=== PATIENT | male | born 1955 | race Caucasian/White ===

== ENCOUNTER 2017-11-24 18:13 | Emergency (ER) | payer BC ==
[2017-11-24 18:48] VITALS: BP 108/84
--- NOTE | 2017-11-24 19:25 | EDM.PDOC ---
ED HPI GENERAL MEDICAL PROBLEM - General Chief Complaint: ENT Problem Stated Complaint: DENTAL COMPLAINT Time Seen by Provider: 11/24/17 18:53 Source of Information: Reports: Patient History Limitations: Reports: No Limitations - History of Present Illness INITIAL COMMENTS - FREE TEXT/NARRATIVE: 62-year-old male presenting with a chief complaint of dental infection. Patient was seen at the beginning of October approximately October [address] Nabor Marcelo here in the emergency department for left lower molar infection. At that time he was placed on amoxicillin and given Vicodin and advised to follow- up with a dentist. He saw his dentist to wanted. Of cooling off before performing a root canal. The patient is currently scheduled for root canal on Saturday. However the past days has increased swelling pain of the left lower jaw around the area of the fractured tooth. He's had no difficulty breathing no difficulty managing his own secretions or swallowing. No neck pain either. He called his dentist who directed him to come to the emergency department for antibiotics to take until Saturday. Left Lower Tooth/Teeth Pain Score (Numeric/FACES): 5 - Related Data Allergies Allergy/AdvReac Type Severity Reaction Status Date / Time No Known Allergies Allergy Verified 10/27/17 23:58 Home Meds: Home Meds Acetaminophen [Tylenol Extra Strength] 1 - 2 tab PO Q4HR PRN 08/08/15 [History] Albuterol [Proair HFA] 2 puff INH Q4HR PRN 08/08/15 [History] Aspirin [Halfprin] 81 mg PO DAILY 08/08/15 [History] Hydrochlorothiazide 1 tab PO DAILY 08/08/15 [History] Lisinopril 1 tab PO DAILY 08/08/15 [History] Nitroglycerin [Nitrostat] 0.4 mg SL Q5M PRN 08/08/15 [History] Atenolol 0 mg PO DAILY 11/24/17 [History] Past Medical History HEENT History: Reports: Impaired Vision, Other (See Below) Other HEENT History: wears glasses Cardiovascular History: Reports: Cardiomyopathy, Heart Failure, High Cholesterol , Hypertension, Other (See Below) Other Cardiovascular History: sick sinus syndrome, valvular heart disease Respiratory History: Reports: Asthma, COPD, SOB - Past Surgical History HEENT Surgical History: Reports: Oral Surgery Social & Family History - Caffeine Use Caffeine Use: Reports: Coffee ED ROS ENT - Review of Systems Review Of Systems: See Below Constitutional: Reports: No Symptoms. Denies: Fever, Chills, Diaphoresis HEENT: Reports: Dental Pain. Denies: Throat Pain, Throat Swelling Respiratory: Denies: Shortness of Breath Cardiovascular: Denies: Chest Pain GI/Abdominal: Denies: Nausea, Vomiting ED EXAM, ENT - Physical Exam Exam: See Below Exam Limited By: No Limitations General Appearance: Alert, No Apparent Distress Mouth/Throat: Other (Swelling about the left mandible no obvious drainable periapical abscess noted there does appear to be a dental fracture with exposed dentin and tooth root and nerve. There is no submandibular woodiness. Patient is able to range his neck fully with no pain. He has no upper airway stridor.) Respiratory/Chest: No Respiratory Distress. No: Lungs Clear, Normal Breath Sounds, No Accessory Muscle Use, Respiratory Distress Course - Vital Signs Last Recorded V/S: Last Vital Signs Temp 36.7 C 11/24/17 18:47 Pulse 76 11/24/17 18:47 Resp 20 11/24/17 18:47 BP 108/84 11/24/17 18:47 Pulse Ox 96 11/24/17 18:47 - Re-Assessments/Exams Free Text/Narrative Re-Assessment/Exam: 11/24/17 21:09 62-year-old male presenting with dental infection. On initial evaluation the patient had no signs or respiratory distress. Physical exam revealed swelling of the left mandible that was tender to palpation no evidence of a drainable periapical abscess here in the emergency department. There is also no evidence that is suggestive of Luis Eduardo's angina as the submandibular space is soft and nontender. No concerning evidence for any deeper space infection of the head or neck H patient will arrange his neck fully and at this time has no difficulty breathing at all. Plan send the patient home on Augmentin as he's been on amoxicillin within the prior month. Has good plan for follow-up with dentist on Saturday. Patient was given strict return precautions for any new or worsening swelling that extends into his neck or in his mouth. Also given return precautions for atypical T breathing at all. he is to call 911 at the first sign of either. Patient understands all instructions all questions answered. Departure - Departure Time of Disposition: 19:26 Disposition: Home, Self-Care 01 Condition: Good Clinical Impression: Dental abscess - Discharge Information *PRESCRIPTION DRUG MONITORING PROGRAM REVIEWED*: No *COPY OF PRESCRIPTION DRUG MONITORING REPORT IN PATIENT CONNER: No Instructions: Dental Abscess Referrals: Nazario Rivera MD [Primary Care Provider] - Forms: ED Department Discharge Additional Instructions: You been seen in the emergency department for a dental infection today. It safe to go home at this time. Please take the antibiotic as directed. Please also follow up as soon as possible with your dentist on Saturday. You may use your remaining hydrocodone as necessary for pain. If at any time you have absolutely any difficulty breathing or swelling extending down into her neck or under your mouth please call 911.
== END 2017-11-24 19:31 | disposition home or self-care (01) ==
LOC: JD.ED 18:13
DX: K04.7 Periapical abscess without sinus (principal); I11.0 Hypertensive heart disease with heart failure; I50.9 Heart failure, unspecified; J44.9 Chronic obstructive pulmonary disease, unspecified; Z79.899 Other long term (current) drug therapy; Z79.82 Long term (current) use of aspirin
CPT/HCPCS: 99282

== ENCOUNTER 2020-12-25 02:27 | Emergency (ER) | payer BC ==
[2020-12-25 02:51] VITALS: BP 136/95; PULSE 86
[2020-12-25] MEDS ORDERED: HYDROmorphone 0.5 MG/0.5 ML Syringe IVPUSH ONE ×2 (03:18→06:06)
[2020-12-25] MEDS ORDERED: Ondansetron 4 MG/2 ML SDV IVPUSH ONE (03:19)
--- NOTE | 2020-12-25 03:24 | EDM.PDOC ---
ED HPI GENERAL MEDICAL PROBLEM - General Chief Complaint: Genitourinary Problem Stated Complaint: SWOLLEN TESTICLES/PAIN Time Seen by Provider: 12/25/20 02:59 Source of Information: Reports: Patient, Family () History Limitations: Reports: No Limitations - History of Present Illness INITIAL COMMENTS - FREE TEXT/NARRATIVE: Mr. Lyon is a very pleasant 65-year-old gentleman who now presents the ED stating that he developed increased swelling of his left testicle on 12/19/2020, followed by a brief episode of bloody, cloudy urine on Saturday or Saturday, followed by urinary hesitancy on , 12/22/2020, followed by left testicular pain on 12/24/2020. Lastly, he started to develop some left flank pain around midnight tonight. He denies having dysuria, but states that he has felt urinary frequency. No recent fever. No abdominal pain, including no suprapubic pain. No prior similar symptoms. Patient states that he has applied some ice to his testicles, however, he has not taken any [id number]-squ-[id number] or home remedies. Here in the ED, the patient's initial BP is found to be slightly elevated at 136/95, otherwise, he is hemodynamically stable, afebrile, saturating 94% on room air. He appears to be somewhat uncomfortable, but is in no acute distress. Prior to Saturday, the patient denies having a recent fever, chills, sore throat, ear pain, nasal or sinus congestion, cough, dyspnea, chest pain, palpitations, nausea, vomiting, constipation, diarrhea, abdominal pain, urinary symptoms, recent weight gain or weight loss, recent bloody bowel movements or black bowel movements, recent joint aches, headaches, or rashes. The patient's PCP is Dr. Nazario Rivera. His Commissioner Of Officials is Dr. David Le. He has received 2 COVID vaccinations. Left Scrotum Pain Score (Numeric/FACES): 7 - Related Data Allergies Allergy/AdvReac Type Severity Reaction Status Date / Time No Known Allergies Allergy Verified 12/25/20 02:40 Home Meds: Home Meds Acetaminophen [Tylenol Extra Strength] 1 - 2 tab PO Q4HR PRN 08/08/15 [History] Albuterol [Proair HFA] 2 puff INH Q4HR PRN 08/08/15 [History] Aspirin [Halfprin] 81 mg PO DAILY 08/08/15 [History] Cyanocobalamin (Vitamin B-12) [B-12] 1,000 mcg PO DAILY 10/06/18 [History] Fluticasone/Salmeterol [Advair 500-50] 1 puff INH BID 10/06/18 [History] Mv-Mn/Folic Acid/Lutein/Xwb505 [Mens Multivit High Potency Tab] 1 each PO DAILY 10/06/18 [History] Naproxen 250 mg PO DAILY 10/06/18 [History] Tiotropium [place] [Spiriva Respimat] 4 gm IH DAILY 10/06/18 [History] cefTRIAXone [Rocephin] 2,000 mg IV DAILY 10/06/18 [History] Past Medical History HEENT History: Reports: Impaired Vision (wears glasses) Cardiovascular History: Reports: Bacterial Endocarditis (August 2018), Cardiomyopathy, Heart Failure, High Cholesterol, Hypertension Respiratory History: Reports: Asthma (PFT-proven) Genitourinary History: Reports: BPH - Past Surgical History HEENT Surgical History: Reports: Oral Surgery (dental extractions) Cardiovascular Surgical History: Reports: AICD (subsequently removed), Valve Replacement (porcine mitral Nov 2019) Social & Family History - Tobacco Use Tobacco Use Status *Q: Current Some Day Tobacco User Years of Tobacco use: 40 Packs/Tins Daily Comment: Down from 1 ppd Tobacco Use Comment: Started smoking 1980 - Caffeine Use Caffeine Use: Reports: Coffee - Alcohol Use Alcohol Use History: Yes Alcohol Use Frequency: Socially - Recreational Drug Use Recreational Drug Use: No - Living Situation & Occupation Living situation: Reports: , with Spouse, with Family (1 daughter) Occupation: Employed (Sales) ED ROS GENERAL - Review of Systems Review Of Systems: Comprehensive ROS is negative, except as noted in HPI. ED EXAM, RENAL/ - Physical Exam Exam: See Below Exam Limited By: No Limitations General Appearance: Alert, WD/WN, No Apparent Distress Eye Exam: Bilateral Eye: EOMI, Normal Inspection Ears: Normal External Exam, Hearing Grossly Normal Nose: Normal Inspection Throat/Mouth: Normal Inspection, Normal Lips, Normal Voice, No Airway Compromise Head: Atraumatic, Normocephalic Neck: Normal Inspection, Full Range of Motion Respiratory/Chest: No Respiratory Distress, Lungs Clear, Normal Breath Sounds, No Accessory Muscle Use Cardiovascular: Normal Peripheral Pulses, Regular Rate, Rhythm, No Edema, No Gallop, No JVD, No Murmur, No Rub GI/Abdominal: Normal Bowel Sounds, Soft, Non-Tender, No Organomegaly, No Distention, No Abnormal Bruit, No Mass (Male) Exam: No Hernia, Testicular Tenderness (L), Other (Left testis significantly enlarged, firm). No: Circumcised, Cremasteric Reflex, Testicular Tenderness (R) Back Exam: Normal Inspection, Full Range of Motion. No: CVA Tenderness (L), CVA Tenderness (R) Extremities: Normal Inspection, Normal Range of Motion, No Pedal Edema, Normal Capillary Refill Neurological: Alert, Oriented, Normal Cognition, No Motor/Sensory Deficits Psychiatric: Normal Affect Skin Exam: Warm, Dry, Intact, Normal Color, No Rash Course - Vital Signs Last Recorded V/S: Last Vital Signs Temp 36.9 C 12/25/20 02:44 Pulse 86 12/25/20 02:44 Resp 17 12/25/20 02:44 BP 136/95 H 12/25/20 02:44 Pulse Ox 94 L 12/25/20 02:44 - Orders/Labs/Meds Orders: Active Orders 24 hr Category Date Time Status Scrotum and Contents [US] Stat Exams 12/25/20 03:18 Taken CULTURE URINE [MREF] Stat Lab 12/25/20 08:29 Ordered Sodium Chloride 0.9% [Normal Saline] 1,000 ml Med 12/25/20 03:30 Active IV ASDIRECTED Medication Orders Sodium Chloride (Normal Saline) 1,000 mls @ 100 mls/hr IV ASDIRECTED GALA Last Admin: 12/25/20 03:44 Dose: 100 mls/hr Documented by: NEREIDA Labs: Laboratory Tests 12/25/20 12/25/20 12/25/20 Range/Units 04:06 04:06 04:45 WBC 14.51 H (4.23-9.07) K/mm3 RBC 4.77 (4.63-6.08) M/mm3 Hgb 15.7 D (13.7-17.5) gm/dl Hct 45.4 (40.1-51.0) % MCV 95.2 H D (79.0-92.2) fl MCH 32.9 H (25.7-32.2) pg MCHC 34.6 (32.2-35.5) g/dl RDW Std Deviation 47.8 H (35.1-43.9) fL Plt Count 72 L D (163-337) K/mm3 MPV 10.4 (9.4-12.3) fl Neutrophils % (Manual) 82 H (40-60) % Band Neutrophils % 0 (0-10) % Lymphocytes % (Manual) 8 L (20-40) % Atypical Lymphs % 0 % Monocytes % (Manual) 9 (2-10) % Eosinophils % (Manual) 1 (0.8-7.0) % Basophils % (Manual) 0 L (0.2-1.2) Platelet Estimate Decreased RBC Morph Comment Normal Sodium 142 (136-145) mEq/L Potassium 4.2 (3.5-5.1) mEq/L Chloride 105 (98-107) mEq/L Carbon Dioxide 29 (21-32) mEq/L Anion Gap 12.2 (5-15) BUN 17 (7-18) mg/dL Creatinine 1.0 (0.7-1.3) mg/dL Est Cr Clr Drug Dosing 74.63 mL/min Estimated GFR (MDRD) > 60 (>60) mL/min BUN/Creatinine Ratio 17.0 (14-18) Glucose 135 H (70-99) mg/dL Calcium 8.3 L (8.5-10.1) mg/dL Total Bilirubin 1.0 (0.2-1.0) mg/dL AST 23 (15-37) U/L ALT 32 (16-63) U/L Alkaline Phosphatase 47 (46-116) U/L C-Reactive Protein 4.2 H* (<1.0) mg/dL Total Protein 6.9 (6.4-8.2) g/dl Albumin 3.8 (3.4-5.0) g/dl Globulin 3.1 gm/dL Albumin/Globulin Ratio 1.2 (1-2) Urine Color (Yellow) Urine Appearance (Clear) Urine pH (5.0-8.0) Ur Specific [place] (1.005-1.030) Urine Protein (Negative) Urine Glucose (UA) (Negative) Urine Ketones (Negative) Urine Occult Blood (Negative) Urine Nitrite (Negative) Urine Bilirubin (Negative) Urine Urobilinogen (0.2-1.0) Ur Leukocyte Esterase (Negative) Urine RBC (0-5) /hpf Urine WBC (0-5) /hpf Ur Epithelial Cells (0-5) /hpf Urine Bacteria (FEW) /hpf Urine Mucus (FEW) /hpf SARS-CoV-2 RNA (CRISTINE) Negative (NEGATIVE) 12/25/20 Range/Units 05:58 WBC (4.23-9.07) K/mm3 RBC (4.63-6.08) M/mm3 Hgb (13.7-17.5) gm/dl Hct (40.1-51.0) % MCV (79.0-92.2) fl MCH (25.7-32.2) pg MCHC (32.2-35.5) g/dl RDW Std Deviation (35.1-43.9) fL Plt Count (163-337) K/mm3 MPV (9.4-12.3) fl Neutrophils % (Manual) (40-60) % Band Neutrophils % (0-10) % Lymphocytes % (Manual) (20-40) % Atypical Lymphs % % Monocytes % (Manual) (2-10) % Eosinophils % (Manual) (0.8-7.0) % Basophils % (Manual) (0.2-1.2) Platelet Estimate RBC Morph Comment Sodium (136-145) mEq/L Potassium (3.5-5.1) mEq/L Chloride (98-107) mEq/L Carbon Dioxide (21-32) mEq/L Anion Gap (5-15) BUN (7-18) mg/dL Creatinine (0.7-1.3) mg/dL Est Cr Clr Drug Dosing mL/min Estimated GFR (MDRD) (>60) mL/min BUN/Creatinine Ratio (14-18) Glucose (70-99) mg/dL Calcium (8.5-10.1) mg/dL Total Bilirubin (0.2-1.0) mg/dL AST (15-37) U/L ALT (16-63) U/L Alkaline Phosphatase (46-116) U/L C-Reactive Protein (<1.0) mg/dL Total Protein (6.4-8.2) g/dl Albumin (3.4-5.0) g/dl Globulin gm/dL Albumin/Globulin Ratio (1-2) Urine Color Yellow (Yellow) Urine Appearance Slt cloudy H (Clear) Urine pH 6.0 (5.0-8.0) Ur Specific [place] > or = 1.030 (1.005-1.030) Urine Protein Trace H (Negative) Urine Glucose (UA) Negative (Negative) Urine Ketones Trace H (Negative) Urine Occult Blood Trace-intact H (Negative) Urine Nitrite Positive H (Negative) Urine Bilirubin Negative (Negative) Urine Urobilinogen 0.2 (0.2-1.0) Ur Leukocyte Esterase 1+ H (Negative) Urine RBC 0-5 (0-5) /hpf Urine WBC 50-75 H (0-5) /hpf Ur Epithelial Cells 0-5 (0-5) /hpf Urine Bacteria Many H (FEW) /hpf Urine Mucus Few (FEW) /hpf SARS-CoV-2 RNA (CRISTINE) (NEGATIVE) Meds: Medications Generic Name Dose Route Start Last Admin Trade Name Deniz PRN Reason Stop Dose Admin Sodium Chloride 1,000 mls @ 100 mls/hr 12/25/20 03:30 12/25/20 03:44 Normal Saline IV 100 mls/hr ASDIRECTED GALA Administration Discontinued Medications Generic Name Dose Route Start Last Admin Trade Name Deniz PRN Reason Stop Dose Admin Hydromorphone HCl 0.5 mg 12/25/20 03:18 12/25/20 03:43 Hydromorphone 0.5 Mg/0.5 Ml Syringe IVPUSH 12/25/20 03:19 0.5 mg ONETIME ONE Administration Hydromorphone HCl 0.5 mg 12/25/20 06:06 12/25/20 06:17 Hydromorphone 0.5 Mg/0.5 Ml Syringe IVPUSH 12/25/20 06:07 0.5 mg ONETIME ONE Administration Levofloxacin/Dextrose 750 mg/ 150 mls @ 100 mls/hr 12/25/20 06:02 12/25/20 06:08 Premix IV 12/25/20 07:31 100 mls/hr ONETIME STA Administration Ondansetron HCl 4 mg 12/25/20 03:19 12/25/20 03:43 Ondansetron 4 Mg/2 Ml Sdv IVPUSH 12/25/20 03:20 4 mg ONETIME ONE Administration - Re-Assessments/Exams Free Text/Narrative Re-Assessment/Exam: 12/25/20 03:21 I have ordered several blood tests, a urinalysis by clean-catch, and an ultrasound of the scrotum. In the event that the patient needs to be admitted or transferred, I have also ordered a swab for the SARS-CoV-2 virus. In the meantime, the patient will be treated with some IV Dilaudid, IV Zofran, and IV fluid. 12/25/20 05:45 The patient CBC is remarkable for leukocytosis of 14.51, but with 0% bandemia, and thrombocytopenia of 72,000, with remainder of his CBC being unremarkable. His CMP is remarkable for modest hyperglycemia of 135, with remainder of his CMP being unremarkable. His CRP is elevated at 4.2. Ultrasound of the scrotum is read by [facility] as: 1. Evidence of hyperemia of the left testicle and left epididymal head is suggestive of orchitis and epididymitis. 2. Bilateral hydroceles, with several septations on the left, could be related to infection. Results of the patient's swab for the SARS-CoV-2 virus is still pending. The patient has not yet provided a urine sample for the urinalysis. 12/25/20 06:03 Ultrasound images pushed to [facility] at 05:47. [facility] contacted at 05:48. Case discussed with Vira at [facility] at 05:51. Case then discussed with Dr. Ralph Deluca, Urologist on-call at [facility], at 05:56. He felt that the patient is likely suffering from left epididym0-orchitis, and, probably, prostatitis. He recommended that the patient be hospitalized for IV Levaquin. He did not feel that the patient requires a urologic procedure, therefore felt that it would be appropriate for the patient to remain here, since there are no beds available in [place]. 12/25/20 06:10 Test results and my conversation with Dr. Deluca discussed with the patient and his . I proposed that we board the patient here in the ED until a bed becomes available. They are agreeable. 12/25/20 08:28 The patient's swab for the SARS-CoV-2 virus is negative. His urinalysis is remarkable for slightly cloudy appearance, trace occult blood with 0-5 RBCs, 1+ leukocyte esterase with 50-75 WBCs, nitrite positive with many bacteria, and 0-5 squamous epithelial cells. Based on the above, I have ordered a urine culture. 12/25/20 08:44 The patient has been doing well. I discussed the option of discharging him home with [facility] prescriptions for levofloxacin, [place], and Zofran ODT. He could also take OTC ibuprofen, and stay adequately hydrated. He is agreeable. If he is unable to tolerate home treatment, he should return to the ED. Departure - Departure Time of Disposition: 08:46 Disposition: Home, Self-Care 01 Condition: Good Clinical Impression: Epididymo-orchitis, UTI (urinary tract infection) - Discharge Information *PRESCRIPTION DRUG MONITORING PROGRAM REVIEWED*: Not Applicable *COPY OF PRESCRIPTION DRUG MONITORING REPORT IN PATIENT CONNER: Not Applicable Referrals: Nazario Rivera MD [Primary Care Provider] - David Le MD [Ordering Only Provider] - Forms: ED Department Discharge Additional Instructions: You were seen in the ER for increased swelling of your left testicle since Saturday, brief cloudy, bloody urine on Saturday or Saturday, urinary hesitancy since , and left testicular pain since Saturday. Work-up in the ER included several blood tests, a urinalysis, a swab for the SARS-CoV-2 virus, and an ultrasound of your scrotum. Your work-up found that you have left epididymo-orchitis = an infection of your left testicle and surrounding tissues. Your prostate may be involved, and you also have a urinary tract infection. You have been started on the antibiotic levofloxacin (Levaquin). We recommend that you ice and elevate your left testicle several times a day. We recommend you take zctw-[id number] ibuprofen, 3 tablets (600 mg) every 8 hours, with food, [id number] initially, then as needed for discomfort. You have been provided with [facility] prescriptions for the antibiotic levofloxacin, the opioid pain reliever [place], and the antinausea medicine Zofran ODT. Take 1 tablet of levofloxacin every morning, starting tomorrow morning, 12/26/2020, as prescribed. Finish the entire prescription unless told otherwise by a doctor. You may take 1 to 2 tablets of [place] up to every 6 hours, as needed for pain not relieved by ibuprofen. If you take [place], do not drive or operate heavy machinery for 12 hours afterwards. [place] may cause constipation, so consider taking a stool softener. You may dissolve 1 tablet of Zofran ODT on your tongue up to every 8 hours, as needed for nausea/vomiting. Stay adequately hydrated. It does not really matter what type of fluid you drink. A sample of your urine has been sent for culture. Please contact the office of your PCP, Dr. Nazario Rivera, on Saturday morning, 12/28/2020, to have them check on the results of your urine culture, to make sure that you are on the correct antibiotic. If any other problems, including the inability to manage your symptoms adequately at home, please do not hesitate to return to the ER. Sepsis Event Note (ED) - Evaluation Sepsis Screening Result: No Definite Risk - Focused Exam Vital Signs: Vital Signs Temp Pulse Resp BP Pulse Ox 12/25/20 02:44 36.9 C 86 17 136/95 H 94 L - My Orders Last 24 Hours: My Active Orders 12/25/20 03:18 Scrotum and Contents [US] Stat 12/25/20 03:30 Sodium Chloride 0.9% [Normal Saline] 1,000 ml IV ASDIRECTED 12/25/20 08:29 CULTURE URINE [MREF] Stat - Assessment/Plan Last 24 Hours: My Active Orders 12/25/20 03:18 Scrotum and Contents [US] Stat 12/25/20 03:30 Sodium Chloride 0.9% [Normal Saline] 1,000 ml IV ASDIRECTED 12/25/20 08:29 CULTURE URINE [MREF] Stat
[2020-12-25] MEDS ORDERED: Sodium Chloride 0.9% 1,000 ML IV SCH (03:30)
[2020-12-25] MEDS ORDERED: Levofloxacin/Dextrose 5%-Water 750 MG in Premix Bag 1 BAG IV STA (06:02)
--- NOTE | 2020-12-25 08:55 | US ---
Testicular ultrasound: Multiple real-time images of the testicles were obtained. Comparison: No prior testicular imaging is available. Findings: Testicles shows both arterial and venous blood flow. Increased blood flow is seen within the left testicle as compared to the right side and difficult to exclude a mild orchitis. There is increased blood flow also noted within the left epididymis possibly due to epididymitis. Small cyst measuring 5 mm is noted within the right testicle which is believed to be incidental. Moderately large bilateral hydrocoeles are seen. Measurements: Right testicle: 5.1 x 2.4 x 2.2 cm Left testicle: 4.8 x 3.1 x 2.9 cm Impression: 1. Slight increased blood flow within the left testicle and left epididymis suspicious for orchitis and epididymitis. 2. Fairly large bilateral hydroceles. 3. Small cyst within the right testicle. Diagnostic code #3 I agree with preliminary report from [facility], finalized on 12/25/20, 6:04 AM CDT, code 1
== END 2020-12-25 09:21 | disposition home or self-care (01) ==
LOC: JD.ED 02:27
DX: N45.3 Epididymo-orchitis (principal); N39.0 Urinary tract infection, site not specified; I11.0 Hypertensive heart disease with heart failure; I50.9 Heart failure, unspecified; J45.909 Unspecified asthma, uncomplicated; F17.210 Nicotine dependence, cigarettes, uncomplicated; Z79.82 Long term (current) use of aspirin; Z79.899 Other long term (current) drug therapy; Z20.822 Contact with and (suspected) exposure to COVID-19
CPT/HCPCS: 36415; 76870; 80053; 81001; 85007; 85027; 86140; 87086; 87088; 87186; 87635; 93975; 96365; 96375; 96376; 99284; J1170; J1956; J2405; J7030; U0002

== ENCOUNTER 2023-07-04 16:26 | Emergency (ER) | payer BC ==
[2023-07-04 17:35] LABS: BASOPHILS PERCENT AUTO 0.5 % (0.0-1.0); EOSINOPHILS ABSOLUTE AUTO 0.1 K/mm3 (0.0-0.4); EOSINOPHILS PERCENT AUTO 2.3 % (0.0-6.0); HEMATOCRIT 35.1 % (42.0-52.0); IMMATURE GRAN ABSOLUTE AUTO 0.02 K/mm3 (0.00-0.05); IMMATURE GRAN PERCENT AUTO 0.5 % (0.0-0.4); LYMPHOCYTES ABSOLUTE AUTO 0.7 K/mm3 (1.0-4.8); LYMPHOCYTES PERCENT AUTO 17.8 % (24.0-44.0); MEAN CORPUSCULAR HEMOGLOBIN 32.2 pg (28.0-32.0); MEAN CORPUSCULAR HGB CONC 34.2 g/dl (32.0-36.0); MEAN CORPUSCULAR VOLUME 94.1 fl (83.0-99.0); MONOCYTES ABSOLUTE AUTO 0.5 K/mm3 (0.0-0.8); MONOCYTES PERCENT AUTO 11.8 % (0.0-8.0); NEUTROPHILS ABSOLUTE AUTO 2.7 K/mm3 (1.8-7.7); NEUTROPHILS PERCENT AUTO 67.1 % (41.0-71.0); RED BLOOD CELL COUNT 3.73 M/mm3 (4.52-5.90); WHITE BLOOD CELL COUNT,WBC 3.99 K/mm3 (3.9-11.3)
[2023-07-04 17:38] LABS: PLATELET COUNT,PLT 0 K/mm3 (150-400)
[2023-07-04] MEDS: Pantoprazole 40 MG Vial IVPUSH ONE (17:52)
[2023-07-04] MEDS: Sodium Chloride 0.9% 10 ML Syringe FLUSH PRN (17:55)
[2023-07-04] MEDS: predniSONE 10 MG Tab PO ONE (17:57)
[2023-07-04 18:05] LABS: INR 3.61; PROTHROMBIN TIME 35.1 SECONDS (9.7-12.0)
[2023-07-04 18:09] LABS: A/G RATIO 1.4 (1-2); ALBUMIN 3.7 g/dl (3.4-5.0); ANION GAP 14.5 (5-15); BILIRUBIN TOTAL 1.6 mg/dL (0.2-1.0); BUN/CREATININE RATIO 15.5 (14-18); CALCIUM 8.4 mg/dL (8.5-10.1); CREATININE 1.1 mg/dL (0.7-1.3); EST CRCL DRUG DOSING (CG) 65.17 mL/min; POTASSIUM,K 3.5 mEq/L (3.5-5.1); PROTEIN TOTAL,TP 6.3 g/dl (6.4-8.2)
[2023-07-04 18:27] VITALS: BP 97/58; PULSE 101
[2023-07-04 18:36] LABS: SLIDE REVIEW ABNORMAL SMEAR
== END 2023-07-04 18:19 ==
LOC: JD.ED 16:26
DX: D69.3 Immune thrombocytopenic purpura (principal); J45.909 Unspecified asthma, uncomplicated; I11.0 Hypertensive heart disease with heart failure; I50.9 Heart failure, unspecified; E78.00 Pure hypercholesterolemia, unspecified; I48.91 Unspecified atrial fibrillation; Z79.51 Long term (current) use of inhaled steroids; Z79.01 Long term (current) use of anticoagulants; Z79.899 Other long term (current) drug therapy
CPT/HCPCS: 36415; 80053; 85025; 85610; 93005; 96374; 99284; 99285-25; C9113; J3490; J7512